=== PATIENT | female | born 1980 | race Caucasian/White ===

== ENCOUNTER 2019-09-20 06:17 | Day surgery (SDC) | payer BC ==
[~2019-09-20] VITALS: Ht 162.6 cm; Wt 63.5 kg
[2019-09-20] VITALS (9 sets, daily range): BP systolic 91–120; BP diastolic 43–80
[2019-09-20] MEDS ORDERED: Bupivacaine 0.5% Inj 30 ml vial INJ ONE (06:28)
[2019-09-20] MEDS ORDERED: Betadine 10% Oint 30gm TOPIC ONE (06:28)
[2019-09-20] MEDS ORDERED: Lidocaine 1% Plain 30 ml INJ ONE (06:28)
[2019-09-20] MEDS ORDERED: Dexamethasone 4mg/ml vial ONE (06:28)
[2019-09-20] MEDS ORDERED: Bacitracin Oint 15gm Tube TOPIC ONE (06:29)
[2019-09-20] MEDS ORDERED: NKM (06:54)
[2019-09-20] MEDS ORDERED: Midazolam 2mg/2ml Inj ONE (07:20)
[2019-09-20] MEDS ORDERED: fentaNYL 100 mcg/2 mL IV ONE (07:20)
[2019-09-20] MEDS ORDERED: Sterile Water Irrig 1000ml IRRIG ONE (07:30)
[2019-09-20] MEDS ORDERED: NS Irrig 1000ml ONE (07:30)
[2019-09-20] MEDS ORDERED: LR 1000ml ONE (07:30)
--- NOTE | 2019-09-20 07:35 | Pre-Procedure Note/Attestation ---
Pre-Procedure Note/Attestation Complete Prior to Procedure Planned Procedure: right Procedure Narrative: Excision of cyst right ankle Indications for Procedure Pre-Operative Diagnosis: Painful cyst right ankle Attestation I attest that I discussed the nature of the procedure; its benefits; risks and complications; and alternatives (and the risks and benefits of such alternatives ), prior to the procedure, with the patient (or the patient's legal artist representative). I attest that, if there was a reasonable possibility of needing a blood transfusion, the patient (or the patient's legal artist representative) was given the [facility] standardized written summary, pursuant to the [place] Blood Safety Act ([place] Health and Safety Code # 1645, as amended). I attest that I re-evaluated the patient just prior to the surgery and that there has been no change in the patient's H&P, except as documented below: Jignesh Braxton DPM Sep 20, 2019 07:35
[2019-09-20] MEDS ORDERED: Propofol 200mg/20ml IV ONE ×2 (07:56→08:09)
[2019-09-20] MEDS ORDERED: Lidocaine 1% MPF 10mg/ml 5ml ONE (07:56)
--- NOTE | 2019-09-20 08:33 | Brief Operative Note ---
Immediate Post Operative Note Operative Note Pre-op Diagnosis: Painful cyst right ankle Post-op Diagnosis: same as pre-op Surgeon: Fox Anesthesia: MAC Specimen: yes Complications: none Condition: stable Fluids: 250 Estimated Blood Loss: none Implant(s) used?: No Jignesh Braxton DPM Sep 20, 2019 08:33
--- NOTE | 2019-09-20 08:46 | Anethesia Preoperative Eval ---
Anesthesia Pre-op PMH/ROS General Date of Evaluation: Sep 20, 2019 Time of Evaluation: 07:30 Anesthesiologist: jeanette ASA Score: ASA 1 Mallampati Score Class I : Soft palate, uvula, fauces, pillars visible Class II: Soft palate, uvula, fauces visible Class III: Soft palate, base of uvula visible Class IV: Only hard plate visible Mallampati Classification: Class II Surgeon: elyssa Diagnosis: cyst ankle Surgical Procedure: excision of ankle cyst Anesthesia History: none Family History: no anesthesia problems Medications: see eMAR Patient NPO?: Yes NPO Date: Sep 20, 2019 NPO Time: 00:01 Past Medical History Cardiovascular: Denies: HTN, CAD, [place], valve dz, arrhythmia, other Pulmonary: Denies: asthma, COPD, DONOVAN, other Neurologic/Psychiatric: Denies: dementia, CVA, depression/anxiety, TIA, other Endocrine: Denies: DM, hypothyroidism, steroids, other HEENT: Denies: cataract (L), cataract (R), glaucoma, VENETIE (L), VENETIE (R), other Hematology/Immune: Denies: anemia, DVT, bleeding disorder, other Musculoskeletal/Integumentary: Denies: OA, RA, DJD, DDD, edema, other PSxH Narrative: septoplasty Anesthesia Pre-op Phys. Exam Physician Exam Last Vital Signs Date Time Temp Pulse Resp B/P (MAP) Pulse Ox O2 Delivery O2 Flow Rate FiO2 09/20/19 08:36 61 21 113/46 99 Room Air 09/20/19 08:31 97.8 Constitutional: NAD Neurologic: CN 2-12 intact Cardiovascular: RRR Respiratory: CTA Gastrointestinal: S/NT/ND Airway Exam Mallampati Classification 2 Mallampati Score: Class II MO: full ROM: full Dentures: no upper, no lower Anesthesia Pre-op A/P Labs Urine Test Test 09/20/19 06:30 Urine HCG, Qualitative Negative (NEGATIVE) Studies Pre-op Studies: EKG - SR Risk Assessment & Plan Plan: MAC Status Change Before Surgery: No Pre-Antibiotics Drug: Ancef Given Within 1 Hr of Incision: Yes Time Given: 07:35 Aneta Payan CRNA Sep 20, 2019 08:46
--- NOTE | 2019-09-20 08:47 | Immediate Post-Op Evaluation ---
Immediate Post-Op Evalulation Immediate Post-Op Evalulation Procedure: excision of ankle cyst Date of Evaluation: Sep 20, 2019 Time of Evaluation: 08:47 IV Fluids: 800 Estimated Blood Loss: 2 Blood Pressure Systolic: 112 Blood Pressure Diastolic: 75 Pulse Rate: 70 Respiratory Rate: 14 O2 Sat by Pulse Oximetry: 98 Temperature (Fahrenheit): 97.5 Nausea: No Vomiting: No Patient Status: awake, reacts, patent Hydration Status: adequate Drug: ancef Given Within 1 Hr of Incision: Yes Time Given: 07:40 Aneta Payan CRNA Sep 20, 2019 08:47
--- NOTE | 2019-09-20 18:45 | History and Physical Report ---
DATE OF ADMISSION: 09/20/2019 PODIATRIC HISTORY AND PHYSICAL HISTORY OF PRESENT ILLNESS: This is a 38-year-old white female that has been under my care for the past 2 months for painful cyst in her right ankle. The patient has been complaining from pain to direct pressure over her ankle and also burning type sensation and tingling from her distal leg all the way to her third and fourth toes right foot. The patient was treated conservatively with an attempt to aspirate the cyst and when the symptoms continued, the patient elected to undergo surgical excision of the cyst. PAST MEDICAL HISTORY: Unremarkable. The patient underwent septal surgery earlier this year. MEDICATIONS: None. ALLERGIES: The patient is allergic to sea food. PODIATRIC PHYSICAL EXAMINATION: VASCULAR: The dorsalis pedis and posterior tibial arteries are equally strong and palpable measuring 3/4 bilaterally. Capillary filling time is less than 3 seconds to all digits bilaterally. No varicosities are noted. Homans sign is negative. NEUROLOGICAL: Reveals intact reflexes, Achilles, and patellar measuring 2/4 fourth bilaterally. Sensation, proprioception, and vibrations are all intact bilateral lower extremity. Babinski is negative. Clonus is absent bilaterally. Positive Tinel sign is noted over the right dorsal ankle. MUSCULOSKELETAL: Reveals no abnormalities or deformities. There is firm palpable nodule just proximal to the dorsal lateral aspect of the right ankle. The nodule is somewhat movable to palpation. DERMATOLOGICAL: Reveals no lesions or scars bilaterally. All nails are present and healthy bilaterally. MRI examination dated 09/06/2019 reveals mild posterior tibialis tendinosis, prior sprain of the anterior talofibular ligament, and lobular bilobed fluid signal located over the anterior inferior tibiofibular ligament, right ankle. ASSESSMENT: Painful cyst, right ankle. PLAN: The patient is admitted today for an excision of cyst, right ankle. Risks, complications, and alternatives discussed with the patient. Postoperative instructions were given. Postoperative medications were not dispensed. The patient had leftover pain medications from prior surgeries earlier this year. Jignesh Braxton D.P.M. DR: DERICK JOB#: [id number] CC: JOSEF
--- NOTE | 2019-09-20 20:30 | Operative Note - Dictated ---
DATE OF OPERATION: 09/20/2019 SURGEON: Jignesh Braxton D.P.M. ANESTHESIA: Local standby. PREOPERATIVE DIAGNOSIS: Painful cyst, right ankle. POSTOPERATIVE DIAGNOSIS: Painful cyst, right ankle. PROCEDURE PERFORMED: Excision of cyst right ankle. DESCRIPTION OF THE OPERATION: The patient was brought to the operating room and was placed on the operating room table in the supine position. Intravenous sedation was administered by the anesthesiologist. Local anesthesia consisting of 0.5% Marcaine plain, total of 10 mL was administered to the right ankle and ankle tourniquet was applied to the right lower extremity. The foot was prepped and draped in the usual sterile manner. An Esmarch bandage was utilized to exsanguinate the blood and the right ankle tourniquet was inflated to 250 mmHg. Attention was directed to the dorsal lateral aspect of the right ankle just above the lateral malleolus. A 4 cm linear incision was centered over the palpable cyst. Incision was deepened utilizing sharp and blunt dissection with care being taken to cauterize and ligate any bleeders. At the level of the soft tissue, multiple small cystic like tissue were identified and excised in total. No solitary cyst was identified. The wound was flushed utilizing sterile saline. The wound was inspected again and no abnormal tissue was observed. The subcutaneous tissue was then reapproximated utilizing 4-0 Vicryl. The skin was then reapproximated utilizing 4-0 nylon in a simple interrupted type stitch. The wound was dressed utilizing Xeroform, 2 x 2 gauze, and 3 inch Parvez. The right ankle tourniquet was deflated and vascular supply was noted to all digits of right foot. Jignesh Braxton D.P.M. DR: Daniel JOB#: [id number] CC: JOSEF
== END 2019-09-20 09:50 | disposition home or self-care (01) ==
LOC: SUR 06:17
DX: L72.8 Other follicular cysts of the skin and subcutaneous tissue (principal)
CPT/HCPCS: 11401; 81025; J0690; J2250; J2704; J3010; J3490; J7120; 94003; 94150